=== PATIENT | male | born 1960 | race African-American/Black ===

== ENCOUNTER 2016-11-23 12:58 | Emergency (ER) | payer MEDICAID ==
[~2016-11-23] VITALS: Ht 182.9 cm; Wt 92.0 kg
[2016-11-23] MEDS ORDERED: IBUPROFEN 800MG TABLET PO ONE (14:45)
[2016-11-23] MEDS ORDERED: KETOROLAC 60MG/2ML VIAL IM ONE (14:45)
[2016-11-23 15:00] VITALS: BP 113/80
== END 2016-11-23 16:32 | disposition home or self-care (01) ==
LOC: ER 12:58
DX: G89.29 Other chronic pain (principal); M54.5 Low back pain
CPT/HCPCS: 99282